=== PATIENT | female | born 1970 | race Two or more races ===

== ENCOUNTER 2017-12-26 10:25 | Outpatient (CLI) | payer OTHER | END 2017-12-26 10:35 | disposition home or self-care (01) | LOC: SONOGRAMA 10:25 | DX: E03.8 Other specified hypothyroidism (principal) ==

== ENCOUNTER 2019-03-07 10:01 | Outpatient (CLI) | payer OTHER | END 2019-03-07 12:46 | disposition home or self-care (01) | LOC: SONOGRAMA 10:01 | DX: E06.3 Autoimmune thyroiditis (principal) ==

== ENCOUNTER 2021-06-20 09:22 | Outpatient (CLI) | payer OTHER | END 2021-06-20 09:33 | disposition home or self-care (01) | LOC: SONOGRAMA 09:22 | PROVIDERS: ATTEND Pathology Anatomic Pathology & Clinical Pathology | DX: E04.2 Nontoxic multinodular goiter (principal) ==

== ENCOUNTER 2023-07-06 15:49 | Outpatient (CLI) | payer OTHER | END 2023-07-06 15:51 | disposition home or self-care (01) | LOC: SONOGRAMA 15:49 | PROVIDERS: ATTEND Pathology Anatomic Pathology & Clinical Pathology | DX: D34 Benign neoplasm of thyroid gland (principal); E07.89 Other specified disorders of thyroid; E04.2 Nontoxic multinodular goiter ==